=== PATIENT | male | born 1990 | race Caucasian/White ===

== ENCOUNTER → 2023-06-25 | Outpatient (CLI) | payer OTHER, SELFPAY | END | disposition home or self-care (01) | LOC: PSN 07:07 | PROVIDERS: PCP Nurse Practitioner Family; Referring Provider Internal Medicine Cardiovascular Disease; Visit Provider Internal Medicine Cardiovascular Disease | DX: I34.1 Nonrheumatic mitral (valve) prolapse (principal) | CPT/HCPCS: 93225; 93226 ==

== ENCOUNTER → 2023-07-01 | Outpatient (CLI) | payer OTHER, SELFPAY ==
--- NOTE | 2023-07-01 13:05 | ECHOD_ITS ---
Version 2 Reason For Study: MITRAL VALVE PROLAPSE Procedure This was a 2D Doppler, Color Flow transthoracic echocardiogram. Exam performed in department. Left Ventricle Normal LV size. Left ventricular systolic function is normal. The estimated ejection fraction is 65 %. No regional wall motion abnormalities noted. Right Ventricle Normal RV size. Normal systolic function. Atria The left atrium is mildly enlarged. Normal right atrium. Mitral Valve Bileaflet diffuse mitral valve thickening. Moderate mitral valve prolapse. Mild-Moderate (1-2+) eccentric mitral valve insufficiency. Tricuspid Valve Normal tricuspid valve. Mild (1+) tricuspid valve insufficiency. Pulmonary artery systolic pressure is 24 mmHg. Aortic Valve Trisinus/trileaflet aortic valve. Pulmonic Valve Normal pulmonic valve. Great Vessels Normal aortic root. The pulmonary artery is normal size. Normal inferior vena cava. Pericardium/Pleural No pericardial effusion. MMode/2D Measurements & Calculations LVIDd: 5.8 cm IVSd: 1.1 cm Ao root diam: 3.5 cm LVIDs: 3.5 cm LVPWd: 1.0 cm RVDd: 3.6 cm FS: 39.7 % LAV(MOD-bp): 99.3 ml LVAd ap4: 46.9 cm2 SV(MOD-sp4): 122.3 ml LAV(MOD-bp) Indexed: 42.6 ml/m2 LVLd ap4: 9.9 cm LAV(MOD-sp2): 89.8 ml EDV(MOD-sp4): 183.8 ml LAV(MOD-sp4): 90.6 ml EDV(sp4-el): 188.9 ml LVAs ap4: 24.2 cm2 LVLs ap4: 8.1 cm ESV(MOD-sp4): 61.5 ml ESV(sp4-el): 61.3 ml EF(MOD-sp4): 66.5 % EF(sp4-el): 67.5 % SV(sp4-el): 127.6 ml LA A4 area: 26.7 cm2 LA dimension(2D): 4.7 cm RA A4 area: 19.3 cm2 Time Measurements MV dec time: 0.17 sec Doppler Measurements & Calculations MV E max hans: 98.3 cm/sec Lat Peak E' Hans: 20.4 cm/sec Med Peak E' Hans: 18.6 cm/sec MV A max hans: 69.1 cm/sec E/E' lat: 4.8 E/E' med: 5.3 MV E/A: 1.4 Ao V2 max: 136.0 cm/sec LV V1 max: 117.8 cm/sec PA V2 max: 86.5 cm/sec Ao max P.4 mmHg LV V1 max P.5 mmHg TR max hans: 227.6 cm/sec TR max P.7 mmHg ECHO/Echo Complete Interpretation Summary Normal LV size. Left ventricular systolic function is normal. The estimated ejection fraction is 65 %. The left atrium is mildly enlarged. Moderate mitral valve prolapse. Mild-Moderate (1-2+) eccentric mitral valve insufficiency. Pulmonary artery systolic pressure is 24 mmHg. Bileaflet diffuse mitral valve thickening. Ordering Physician: Tulio Douglas Referring Physician: PAO WOLFE Performed By: Li Berg RDCS
== END | disposition home or self-care (01) ==
LOC: CVS 13:02
PROVIDERS: PCP Nurse Practitioner Family; Referring Provider Internal Medicine Cardiovascular Disease; Visit Provider Internal Medicine Cardiovascular Disease
DX: I34.1 Nonrheumatic mitral (valve) prolapse (principal)
CPT/HCPCS: 93306

== ENCOUNTER → 2023-09-06 | Outpatient (CLI) | payer OTHER, SELFPAY ==
--- OUTSIDE RECORDS SUMMARY | 2023-09-06 07:16 | XMS RPT_ITS | CCD ---
Author Name Unknown Address [address] [place] [address] Organization [facility] Care Team Providers Care Agile Developer Name Role Phone SUSAN WHITE DO Unavailable Unavailable CHRISTOPHER, SUSAN DO Unavailable Unavailable DIDCHAITANYA, SUSAN DO Unavailable Unavailable NO, DOCTOR ON Unavailable Unavailable NO, DOCTOR ON Unavailable Unavailable Pcp, No Primary Care Provider Unavailabl e Medications Current Medications Medication Drug Class(es) Dates Sig (Normalized) Sig (Original) polymyxin b 02636 unt/ml / trimethoprim 1 mg/ml ophthalmic solution (1 source) Dihydrofolate Reductase Inhibitor Antibacterial, Polymyxin-class Antibacterial Start: 06-23-2022 End: 06-30-2022 take 2 drop(s) into the eye(s) every six hours trimethoprim-polymy meliton (POLYTRIM) 10,000 unit- 1 mg/mL ophthalmic solution Indications: Acute conjunctivitis of left eye, unspecified acute conjunctivitis type Use 2 Drops in the left eye every 6 hours for 7 days. 10 mL 0 06/23/2022 06/30/2022 Active Problems Problem Classification Problem Date Documented Da te Episodic/Chronic Inflammation; infection of eye (except that caused by tuberculosis or sexually transmitteddisease) (1 source) Acute conjunctivitis of left eye; Translations: [Unspecified acute conjunctivitis, left eye] Episodic Other upper respiratory infections (1 source) Acute upper respiratory infection; Translations: [Acute upper respiratory infection, unspecified] Episodic Results Test Name Value Interpretation Reference Range Facil ity Vital Signs Date Time Vital Sign Value Performing Clinician Urban maldonado 06-23-2022 11:02-0500 Body temperature 97.5 [degF] Jose Chua MD Work Phone: [facility] 06-23-2022 11:02-0500 Body weight 107.5 kg Jose Chua MD Work Phone: [facility] 06-23-2022 11:02-0500 Diastolic blood pressure 72 mm[Hg] Jose Chua MD Work Phone: [facility] 06-23-2022 11:02-0500 Heart rate 88 /min Jose Chua MD Work Phone: [facility] 06-23-2022 11:02-0500 Respiratory rate 16 /min Jose Chua MD Work Phone: [facility] 06-23-2022 11:02-0500 SaO2% (BldA) [Mass fraction] 96 % Jose Chua MD Work Phone: [facility] 06-23-2022 11:02-0500 Systolic blood pressure 130 mm[Hg] Jose Chua MD Work Phone: [facility] Encounters Encounter Date Encounter Type Care Provider Facility Start: 06-23-2022 End: 06-23-2022 ambulatory Facility:[facility] Start: 06-23-2022 End: 06-23-2022 Patient encounter procedure Jose Chua MD Work Phone: [facility] Plan of Treatment Date Care Activity Detail Author Start: 03-15-2022 Influenza vaccination INFLUENZA (#1) [facility] Start: 09-10-2021 COVID-19 VACCINE (4 - Booster for Moderna series) COVID-19 VACCINE (4 - Booster for Moderna series) [facility] Start: 07-15-2021 DEPRESSION ASSESSMENT DEPRESSION ASS ESSMENT [facility] Start: 2010 Urine microalbumin profile DTAP,TDAP ,TD (1 - Tdap) [facility] Start: 2009 HEPATITIS C SCREENING HEPATITIS C SC VANDA [facility] Start: 2009 HIV SCREENING HIV SCREENING [facility] Start: 1991 HEPATITIS B (1 of 3 - 3-dose series) HEPATITIS B (1 of 3 - 3-dose series) [facility] Payers Date Payer Category Payer Unknown MMO MMO [employer] [id number] 2021-Present [phone] [address] [place] [address] PPO [id number] Unknown [id number] Social History Date Type Detail Facility Tobacco smoking stat [facility] Never smoked tobacco [facility] Work Phone: Start: 06-23-2022 Alcohol intake Current drinke r of alcohol (finding) [facility] Start: 1991 Sex Assigned At Not on file [facility] Progress note 06-23-2022 Note Date & Type Note Facility 06-23-2022 Note HNO ID: [id number] Author: Jose Chua MD Service: ? Author Type: Physician Type: Progress Notes Filed: 06/23/2022 11:48 AM Note Text: Patient presents with: Sinus Problem: sinus pressure x couple days, left eye red and drainage x last night HPI: Feeling sick for 1 week and improving. Left eye symptoms started last night. Positive symptoms: sinus pressure, left eyeball redness/discharge/irritation, some Cough, improved Sore throat/uvula swollen, Nasal Congestion, Rhinorrhea, Post nasal drainage, Negative symptoms: Shortness of breath, Fever, Chills, Nausea, Vomiting, Diarrhea, vision change, OTC: Nyquil, Dayquil MEDICATIONS: No current outpatient medications on file. No current facility-administered medications for this visit. ALLERGIES: ALLERGIES No Known Allergies VITALS: BP 130/72 Pulse 88 Temp 36.4 ?C (97.5 ?F) Resp 16 Wt 107.5 kg (237 lb) SpO2 96% PHYSICAL EXAM: GEN: mildly ill appearing HEENT: PERRL, EOMI, right conjunctiva clear. Moderate right scleral injection with thin discharge. Trace left upper eyelid edema with boggy palpebral conjunctiva. Ears: canals clear. TMs without erythema, bulge, or effusion Sinuses: non-tender frontal sinus, non-tender maxillary sinuses Throat: moist mucous membranes, pharyngeal erythema, no exudate Neck: supple, no thyromegaly, no lymphadenopathy HEART: regular rate and rhythm, no murmurs LUNGS: clear to auscultation, no wheezes or crackles, no increased WOB ASSESSMENT/PLAN: 1. Acute conjunctivitis of left eye, unspecified acute conjunctivitis type - ICD9: 372.00, ICD10: H10.32 (primary diagnosis) [employer] eye discussed. Infectious conjunctivitis is most commonly caused by cold viruses and is a self-limited condition which usually resolves in about a week. Bacterial conjunctivitis usually follows a similar course, but symptoms and contagiousness are responsive to antibiotics. Bacterial infection can rarely progress to more serious infection. Hand hygiene with washing or twine winder is important to reduce spread of the infection. Seek re-evaluation for high fever, increasing periocular redness/swelling, eye pain, or vision change as these can be symptoms of serious infection. - POLYMYXIN B SULFATE 10,000 UNIT-TRIMETHOPRIM 1 MG/ML EYE DROPS 2. URI, acute - ICD9: 465.9, ICD10: J06.9 - suspect viral URI, differential includes influenza and COVID-19. Declines testing. - Red flags to seek further treatment include chest pain, shortness of breath, and lethargy; in the ER if severe. Jose Chua MD [facility] History of Present illness Narrative 06-23-2022 Jose Chua MD - 06/23/2022 11:29 AM EST Note Date & Type Note Facility 06-23-2022 History of Presen t illness Narrative Patient presents with: Sinus Problem: sinus pressure x couple days, left eye red and drainage x last night HPI: Feeling sick for 1 week and improving. Left eye symptoms started last night. Positive symptoms: sinus pressure, left eyeball redness/discharge/irritation, some Cough, improved Sore throat/uvula swollen, Nasal Congestion, Rhinorrhea, Post nasal drainage, Negative symptoms: Shortness of breath, Fever, Chills, Nausea, Vomiting, Diarrhea, vision change, OTC: Nyquil, Dayquil MEDICATIONS: No current outpatient medications on file. No current facility-administered medications for this visit. ALLERGIES: ALLERGIES No Known Allergies VITALS: BP 130/72 Pulse 88 Temp 36.4 C (97.5 F) Resp 16 Wt 107.5 kg (237 lb) SpO2 96% PHYSICAL EXAM: GEN: mildly ill appearing HEENT: PERRL, EOMI, right conjunctiva clear. Moderate right scleral injection with thin discharge. Trace left upper eyelid edema with boggy palpebral conjunctiva. Ears: canals clear. TMs without erythema, bulge, or effusion Sinuses: non-tender frontal sinus, non-tender maxillary sinuses Throat: moist mucous membranes, pharyngeal erythema, no exudate Neck: supple, no thyromegaly, no lymphadenopathy HEART: regular rate and rhythm, no murmurs LUNGS: clear to auscultation, no wheezes or crackles, no increased WOB ASSESSMENT/PLAN: 1. Acute conjunctivitis of left eye, unspecified acute conjunctivitis type - ICD9: 372.00, ICD10: H10.32 (primary diagnosis) [employer] eye discussed. Infectious conjunctivitis is most commonly caused by cold viruses and is a self-limited condition which usually resolves in about a week. Bacterial conjunctivitis usually follows a similar course, but symptoms and contagiousness are responsive to antibiotics. Bacterial infection can rarely progress to more serious infection. Hand hygiene with washing or twine winder is important to reduce spread of the infection. Seek re-evaluation for high fever, increasing periocular redness/swelling, eye pain, or vision change as these can be symptoms of serious infection. - POLYMYXIN B SULFATE 10,000 UNIT-TRIMETHOPRIM 1 MG/ML EYE DROPS 2. URI, acute - ICD9: 465.9, ICD10: J06.9 - suspect viral URI, differential includes influenza and COVID-19. Declines testing. - Red flags to seek further treatment include chest pain, shortness of breath, and lethargy; in the ER if severe. Jose Chua MD documented in this encounter [facility] Evaluation note Note Date & Type Note Facility documented in this encounter [facility] Summary Purpose Family History No Family History Records FoundNo Family History Records Found Advance Directives No Advanced Directives Records FoundNo Advanced Directives Records Found Additional Source Comments (unrecognized sect ion and content) No Status Records FoundNo Status Records Found INFORMATION SOURCE (unrecogn ized section and content) DATE CREATED AUTHOR AUTHOR'S ORGANIZ ATION 06/23/[address] [facility] Source Comments (unrecognize d section and content) In the event this informatio n is protected by the Federal Confidentiality of Alcohol and Drug Abuse Patient Records regulations: The Federal rules restrict any use of the information to criminally investigate or prosecute any alcohol or drug abuse patient.[facility] Reason for Visit (unrecogniz ed section and content) Care Teams (unrecognized sec tion and content) FOR RECORDS PERTAINING TO PATIENTS WHO ARE OR HAVE BEEN ENROLLED IN A CHEMICAL DEPENDENCY/SUBSTANCEABUSE PROGRAM, SOME INFORMATION MAY BE OMITTED. This clinical summary was aggregated from multiple sources. Caution should be exercised in using it in the provision of clinical care. This summary normalizes information from multiple sources, and as a consequence, information in this document may materially change the coding, format and clinical context of patient data. In addition, data may be omitted in some cases. CLINICAL DECISIONS SHOULD BE BASED ON THE PRIMARY CLINICAL RECORDS. [employer] [facility]. provides no warranty or guarantee of the accuracy or completeness of information in this document.
== END | disposition home or self-care (01) ==
LOC: PSN 07:04
PROVIDERS: PCP Nurse Practitioner Family; Referring Provider Physician Assistant Medical; Visit Provider Physician Assistant Medical
DX: I49.3 Ventricular premature depolarization (principal); I34.1 Nonrheumatic mitral (valve) prolapse
CPT/HCPCS: 93225; 93226

== ENCOUNTER → 2024-02-20 | Outpatient (CLI) | payer OTHER, SELFPAY ==
--- NOTE | 2024-02-20 13:12 | CT_ITS ---
STUDY: CT CHEST WITHOUT CONTRAST REASON FOR EXAM: Male, 33 years old. MVP RADIATION DOSAGE (If Supplied By Facility): CTDIvol = ( 65 ) mGy, DLP = ( 2405 ) mGycm TECHNIQUE: Transaxial imaging was performed without the administration of intravenous contrast material. Cardiac over read examination. Individualized dose optimization techniques were used for this CT. COMPARISON: No relevant priors. FINDINGS: CHEST The lungs are normal. There is no demonstrated pleural abnormality. Normal heart and pericardium. Normal mediastinum. Normal hilar regions. Normal unenhanced pulmonary arteries. Normal aorta arch and descending thoracic aorta. Normal osseous structures. There is no demonstrated abnormality of the visualized upper abdomen. CT/Limited Chest CT Cardiac Only IMPRESSION: Normal unenhanced CT chest. Electronically Signed: Tevin Cantu MD at 8:17 EDT ,
[2024-02-20 13:19] VITALS: BP 120/67; PULSE 63; RESP 18; O2SAT 98; BMI 28.7
[2024-02-20] MEDS: 0.9% Saline Lock 10 ML Syringe IV (13:35)
[2024-02-20 13:43] VITALS: BP 120/67; PULSE 63
[2024-02-20] MEDS: Nitroglycerin SL (ED/IMG/CATH) 0.4 MG TABLET SL (13:43)
[2024-02-20 13:49] LABS: CREATININE FINGERSTICK < 1.0 mg/dL (0.70-1.30); EGFR FINGERSTICK > 60.0000 mL/min (>60)
[2024-02-20 13:50] VITALS: BP 105/58; PULSE 75; RESP 18; O2SAT 95
--- NOTE | 2024-02-24 16:36 | CCTA.WCONT ---
CCTA w/Cont Coronary Arteries Date of Study:: 02/24/24 Mitral valve prolapse Coronary Calcium Scoring: High-resolution Computed Tomographic imaging of the chest was performed on [02/24/2024], with particular attention paid to the coronary arteries. Intravenous contrast agent was administered per protocol and images reconstructed and displayed. LEFT MAIN CORONARY ARTERY: Arises from the left coronary cusp and is noted to be patent with no obstructive disease [] LEFT ANTERIOR DESCENDING CORONARY ARTERY: Arises from the left main coronary with no significant atherosclerotic plaquing [] LEFT CIRCUMFLEX CORONARY ARTERY: Arises from the left main coronary artery with no significant atherosclerotic plaquing [] RIGHT CORONARY ARTERY: Dominant vessel arising from the right coronary cusp coursing and bifurcating to the posterior descending artery and posterolateral artery with no significant atherosclerotic plaquing noted Conclusion: Cardiac CTA with no atherosclerotic plaquing noted.
== END | disposition home or self-care (01) ==
LOC: CT 13:10
PROVIDERS: PCP Nurse Practitioner Family; Referring Provider Physician Assistant Medical; Visit Provider Physician Assistant Medical
DX: R94.39 Abnormal result of other cardiovascular function study (principal); I34.1 Nonrheumatic mitral (valve) prolapse; I49.3 Ventricular premature depolarization
CPT/HCPCS: 75574; 76380; Q9967

== ENCOUNTER → 2024-09-29 | Outpatient (CLI) | payer OTHER, SELFPAY ==
--- NOTE | 2024-09-29 08:15 | ECHOD_ITS ---
Reason For Study Reason For Study: MITRAL VALVE PROLAPSE Procedure This was a 2D Doppler, Color Flow transthoracic echocardiogram. Exam performed in department. Left Ventricle Normal LV size. Left ventricular systolic function is normal. The left ventricular ejection fraction is 60 %. No regional wall motion abnormalities noted. Right Ventricle Normal RV size. Normal systolic function. Atria Normal left atrium. Normal right atrium. Mitral Valve Bileaflet diffuse mitral valve thickening. Bileaflet mitral valve prolapse. Mild (1+) eccentric mitral valve insufficiency. Tricuspid Valve Normal tricuspid valve. Aortic Valve Trisinus/trileaflet aortic valve. Pulmonic Valve Normal pulmonic valve. Great Vessels Normal sized aortic root. The pulmonary artery is normal size. Inferior vena cava collapse with sniff. Pericardium/Pleural No pericardial effusion. MMode/2D Measurements & Calculations LVIDd: 5.6 cm IVSd: 1.1 cm Ao root diam: 3.7 cm LVIDs: 3.5 cm LVPWd: 1.1 cm RVDd: 3.9 cm FS: 37.9 % LAV(MOD-bp): 100.2 ml LVAd ap4: 43.2 cm2 SV(MOD-sp4): 96.1 ml LAV(MOD-bp) Indexed: 42.6 ml/m2 LVLd ap4: 9.5 cm SI(MOD-sp4): 40.8 ml/m2 LAV(MOD-sp2): 94.8 ml EDV(MOD-sp4): 161.2 ml LAV(MOD-sp4): 82.4 ml EDV(sp4-el): 166.3 ml LVAs ap4: 25.1 cm2 LVLs ap4: 7.9 cm ESV(MOD-sp4): 65.1 ml ESV(sp4-el): 67.6 ml EF(MOD-sp4): 59.6 % EF(sp4-el): 59.3 % SV(sp4-el): 98.7 ml LA A4 area: 24.8 cm2 LA dimension(2D): 4.3 cm RA A4 area: 18.5 cm2 TAPSE: 2.4 cm Time Measurements MV dec time: 0.21 sec Doppler Measurements & Calculations MV E max hans: 90.6 cm/sec Lat Peak E' Hans: 15.2 cm/sec Med Peak E' Hans: 13.4 cm/sec MV A max hans: 52.8 cm/sec E/E' lat: 6.0 E/E' med: 6.7 MV E/A: 1.7 Ao V2 max: 115.2 cm/sec LV V1 max: 90.1 cm/sec PA V2 max: 85.7 cm/sec Ao max P.3 mmHg LV V1 max P.2 mmHg TR max hans: 219.1 cm/sec TR max P.2 mmHg ECHO/Echo Complete Interpretation Summary Normal LV size. Left ventricular systolic function is normal. The left ventricular ejection fraction is 60 %. Bileaflet diffuse mitral valve thickening. Bileaflet mitral valve prolapse. Mild (1+) eccentric mitral valve insufficiency. Ordering Physician: Minnie Mejia Referring Physician: PAO WOLFE Performed By: Li Berg RDCS
== END | disposition home or self-care (01) ==
PROVIDERS: PCP Nurse Practitioner Family; Referring Provider Physician Assistant Medical; Visit Provider Physician Assistant Medical
DX: I34.1 Nonrheumatic mitral (valve) prolapse (principal); I49.3 Ventricular premature depolarization
CPT/HCPCS: 93306